=== PATIENT | female | born 1990 | race African-American/Black ===

== ENCOUNTER 2021-06-26 19:40 | Observation (INO) | payer SELFPAY ==
[~2021-06-26] VITALS: Ht 167.6 cm; Wt 84.0 kg
[2021-06-26] MEDS ORDERED: ONDANSETRON 4MG ODT PO ONE (21:45)
[2021-06-26 22:11] LABS: HEMATOCRIT. 30.6 % (36.0-48.0); HEMOGLOBIN. 10.3 g/dL (12.0-16.0); MEAN CORPUSCULAR HEMOGLOBIN 29.3 pg (28.0-32.0); MEAN CORPUSCULAR VOLUME 87.1 fL (81.0-99.0); MEAN PLATELET VOLUME 8.1 fl (7.4-10.4); PLATELET 261 x1000/uL (130-400); RED BLOOD CELL COUNT 3.51 mill/uL (4.2-5.4); RED CELL DISTRIBUTION WIDTH 13.6 % (11.6-14.6)
[2021-06-26 22:14] LABS: CHLORIDE 104 mEq/L (98-107)
[2021-06-26 22:36] LABS: PLATELET ESTIMATE NORMAL
[2021-06-26] MEDS ORDERED: ASPIRIN 325MG EC TABLET PO ONE (23:45)
[2021-06-26 23:58] VITALS: BP 137/74
[2021-06-27] MEDS ORDERED: PREN-176 MT (00:32)
[2021-06-27 01:46] LABS: CLARITY URINE CLEAR (CLEAR); COLOR URINE YELLOW (YELLOW); KETONES URINE 1+ (NEGATIVE); LEUKOCYTE ESTERASE URINE NEGATIVE (NEGATIVE); NITRITE URINE NEGATIVE (NEGATIVE); OCCULT BLOOD URINE NEGATIVE (NEGATIVE); PH URINE 5.5 (4.5-8.0); PROTEIN URINE NEGATIVE (NEGATIVE); SPECIFIC GRAVITY URINE 1.012 (1.005-1.030); UROBILINOGEN URINE 0.2 E.U./dL (0.2-1.0)
== END 2021-06-27 02:45 | disposition home or self-care (01) ==
LOC: ER 19:40 → 8 EST LDRP 06-27 00:22
PROVIDERS: ADMIT Obstetrics & Gynecology; ATTEND Obstetrics & Gynecology
DX: O26.892 Other specified pregnancy related conditions, second trimester (principal); K21.9 Gastro-esophageal reflux disease without esophagitis; R10.10 Upper abdominal pain, unspecified; R10.30 Lower abdominal pain, unspecified; O99.512 Diseases of the respiratory system complicating pregnancy, second trimester; R07.2 Precordial pain; Z3A.22 22 weeks gestation of pregnancy
CPT/HCPCS: 36415; 59025; 76805; 80053; 81003; 83690; 84484; 85025; 93005; G0378; 99281; 99284; G0379

== ENCOUNTER 2021-10-25 03:35 | Observation (INO) | payer SELFPAY ==
[~2021-10-25] VITALS: Ht 167.6 cm; Wt 93.4 kg
[~2021-10-25 03:35] MED LIST: PREN-176 MT
[2021-10-25] MEDS: LACTATED RINGERS 1,000 ML IV SCH ×2 (06:52→09:48)
[2021-10-25 09:09] LABS: BASOPHILS % 0.2 % (0.0-2.0); EOSINOPHILS % 1.3 % (0.0-5.0); HEMATOCRIT. 34.3 % (36.0-48.0); HEMOGLOBIN. 11.6 g/dL (12.0-16.0); MEAN CORPUSCULAR HEMOGLOBIN 29.4 pg (28.0-32.0); MEAN CORPUSCULAR VOLUME 87.1 fL (81.0-99.0); MEAN PLATELET VOLUME 9.5 fl (7.4-10.4); MONOCYTES % 12.6 % (2.0-8.0); NEUTROPHILS % 56.9 % (40.0-76.0); PLATELET 233 x1000/uL (130-400); RED BLOOD CELL COUNT 3.94 mill/uL (4.2-5.4); RED CELL DISTRIBUTION WIDTH 15.7 % (11.6-14.6)
[2021-10-25 09:14] LABS: CLARITY URINE CLEAR (CLEAR); COLOR URINE YELLOW (YELLOW); KETONES URINE NEGATIVE (NEGATIVE); LEUKOCYTE ESTERASE URINE TRACE (NEGATIVE); NITRITE URINE NEGATIVE (NEGATIVE); OCCULT BLOOD URINE 2+ (NEGATIVE); PROTEIN URINE NEGATIVE (NEGATIVE); SPECIFIC GRAVITY URINE 1.006 (1.005-1.030); UROBILINOGEN URINE 0.2 E.U./dL (0.2-1.0)
[2021-10-25 09:29] LABS: PARTIAL THROMBOPLASTIN TIME 29.3 sec (23.4-31.0); PROTHROMBIN TIME 10.5 sec (9.6-11.0)
[2021-10-25 09:29] LABS: *AMPHETAMINES SCREEN URINE NEGATIVE (NEGATIVE); *BARBITURATES SCREEN URINE NEGATIVE (NEGATIVE); *BENZODIAZEPINES SCREEN URINE NEGATIVE (NEGATIVE); *COCAINE SCREEN URINE NEGATIVE (NEGATIVE); CANNABINOID URINE SCREEN NEGATIVE (NEGATIVE); METHADONE URINE SCREEN NEGATIVE (NEGATIVE); OPIATES URINE SCREEN NEGATIVE (NEGATIVE); PHENCYCLIDINE URINE SCREEN NEGATIVE (NEGATIVE)
[2021-10-25 12:24] LABS: HEPATITIS B SURFACE ANTIGEN NEGATIVE
== END 2021-10-25 12:06 | disposition home or self-care (01) ==
LOC: OBSVTOIN 03:35 → 8 EST LDRP 03:35 → INTOOBSV 03:35
PROVIDERS: ADMIT Obstetrics & Gynecology; ATTEND Obstetrics & Gynecology
DX: O62.9 Abnormality of forces of labor, unspecified (principal); O26.893 Other specified pregnancy related conditions, third trimester; R10.9 Unspecified abdominal pain; O48.0 Post-term pregnancy; Z20.822 Contact with and (suspected) exposure to COVID-19; Z79.899 Other long term (current) drug therapy; Z3A.40 40 weeks gestation of pregnancy
CPT/HCPCS: 36415; 76805; 76818; 80305; 81003; 85025; 85610; 85730; 86592; 86703; 86762; 86850; 86900; 86901; 87340; 87426; 96360; 96361; 99281; G0378; 59025; J7120

== ENCOUNTER 2021-10-25 19:53 | Inpatient (IN) | payer SELFPAY ==
[~2021-10-25] VITALS: Ht 167.6 cm; Wt 93.4 kg
[~2021-10-25 19:53] MED LIST changes: +LIDOCAINE HCL 2%/EPINEPHRINE 1:100,000 20 ML VIAL INFIL ONE
[2021-10-25] MEDS: LACTATED RINGERS 1,000 ML IV SCH ×2 (21:05→21:58)
[2021-10-25] MEDS ORDERED: PENICILLIN G POTASSIUM 5 MMU in DEXT 5% WATER 100 ML IV NR (22:00)
[2021-10-25] MEDS ORDERED: METHYLERGONOVINE MALEATE 0.2 MG/ML IM PRN (22:15)
[2021-10-25] MEDS ORDERED: NALOXONE HCL 0.4 MG/ML 1ML VIAL IM PRN (22:15)
[2021-10-25] MEDS ORDERED: LIDOCAINE HCL 1% 20ML VIAL (Pyxis) INJ INFIL SCH (22:15)
[2021-10-25] MEDS ORDERED: CARBOPROST TROMETHAMINE 250 MCG/ML AMPUL IM PRN (22:15)
[2021-10-25] MEDS ORDERED: DEXT 5%/LR + PITOCIN 20UNITS/L 1,000 ML IV SCH (22:30)
[2021-10-25] MEDS ORDERED: ROPIVACAINE HCL/PF EPIDURAL 200 ML EPI SCH (23:30)
[2021-10-25] MEDS ORDERED: ROPIVACAINE HCL/PF EPIDURAL 200 ML EPI ONE (23:33)
[2021-10-26] MEDS: LACTATED RINGERS 1,000 ML IV SCH ×2 (00:54→06:45)
[2021-10-26] MEDS: PENICILLIN G POTASSIUM 2.5 MMU in DEXTROSE 5% WATER 50 ML IV SCH ×2 (03:39→07:20)
[2021-10-26] MEDS ORDERED: FENTANYL CITRATE/PF 50MCG/ML 2ML VIAL ONE (06:18)
[2021-10-26] MEDS ORDERED: CEFAZOLIN SODIUM 1000MG/VIAL ONE (06:19)
[2021-10-26] MEDS ORDERED: MORPHINE SULFATE/PF 1MG/ML 10ML AMP ONE (06:19)
[2021-10-26] MEDS ORDERED: ONDANSETRON HCL 4MG/2ML INJ ONE ×2 (06:20→09:14)
[2021-10-26] MEDS ORDERED: OXYTOCIN 10 UNITS/ML 1ML ONE (06:20)
[2021-10-26] MEDS ORDERED: METHYLERGONOVINE MALEATE 0.2 MG/ML ONE (06:29)
[2021-10-26] MEDS ORDERED: CITRIC ACID/SODIUM CITRATE SOLN 30ML UDC PO NR (08:15)
[2021-10-26] MEDS ORDERED: DIPHENHYDRAMINE 50MG/ML VIAL ONE (09:14)
[2021-10-26] MEDS ORDERED: KETOROLAC 60MG/2ML VIAL IM ONE (09:22)
[2021-10-26] MEDS ORDERED: BUTORPHANOL TARTRATE 2 MG/ML VIAL IV PRN (09:30)
[2021-10-26] MEDS ORDERED: DIPHENHYDRAMINE 50MG/ML VIAL IV PRN (09:30)
[2021-10-26] MEDS ORDERED: NALOXONE HCL 0.4 MG/ML 1ML VIAL IV PRN (09:30)
[2021-10-26] MEDS ORDERED: DEXT 5%/LACTATED RINGERS 1,000 ML IV SCH (09:45)
[2021-10-26] MEDS ORDERED: LANOLIN OINT 7GM TUBE TOP PRN (09:45)
[2021-10-26] MEDS ORDERED: HYDROMORPHONE HCL/PF 2MG/ML CPJ IM PRN (09:45)
[2021-10-26] MEDS ORDERED: HYDROCODONE/ACETAMINOPHEN 5/325MG TABLET PO PRN (09:45)
[2021-10-26] MEDS ORDERED: DIPHENHYDRAMINE 25MG CAPSULE PO PRN (09:45)
[2021-10-26] MEDS ORDERED: ONDANSETRON HCL 4MG/2ML INJ IV PRN (09:45)
[2021-10-26] MEDS ORDERED: BISACODYL 10MG SUPP PR PRN (09:45)
[2021-10-26] MEDS ORDERED: IBUPROFEN 400MG TABLET PO PRN (09:45)
[2021-10-26] MEDS ORDERED: MAGNESIUM 4 G PREMIX 100 ML IV ONE (09:45)
[2021-10-26] MEDS: DEXT 5%/LR + PITOCIN 20UNITS/L 1,000 ML IV SCH (10:00)
[2021-10-26 12:00] VITALS: BP 126/74
[2021-10-26 16:00] VITALS: BP 117/73
[2021-10-26] MEDS: KETOROLAC 30MG/ML VIAL IV SCH ×2 (16:11→23:32)
[2021-10-26 20:00] VITALS: BP 109/71
[2021-10-27] MEDS ORDERED: KETOROLAC 30MG/ML VIAL IV SCH
[2021-10-27 00:01] VITALS: BP 123/74
[2021-10-27 03:30] VITALS: BP 117/68
[2021-10-27] MEDS: DEXT 5%/LR + PITOCIN 20UNITS/L 1,000 ML IV SCH (03:30)
[2021-10-27] MEDS: KETOROLAC 30MG/ML VIAL IV SCH (05:16)
[2021-10-27 07:41] VITALS: BP 118/72
[2021-10-27 07:53] LABS: BASOPHILS % 0.1 % (0.0-2.0); EOSINOPHILS % 1.1 % (0.0-5.0); HEMOGLOBIN. 9.5 g/dL (12.0-16.0); LYMPHOCYTES % 13.9 % (20.0-50.0); MEAN CORPUSCULAR HEMOGLOBIN 30.2 pg (28.0-32.0); MEAN CORPUSCULAR VOLUME 88.6 fL (81.0-99.0); MEAN PLATELET VOLUME 8.7 fl (7.4-10.4); MONOCYTES % 13.1 % (2.0-8.0); NEUTROPHILS % 71.8 % (40.0-76.0); PLATELET 187 x1000/uL (130-400); RED BLOOD CELL COUNT 3.16 mill/uL (4.2-5.4); RED CELL DISTRIBUTION WIDTH 15.7 % (11.6-14.6)
[2021-10-27] MEDS: SIMETHICONE 80MG TABLET CHEW PO SCH ×3 (09:10→18:18)
[2021-10-27] MEDS: FERROUS SULFATE 325MG TABLET PO SCH ×3 (09:10→18:18)
[2021-10-27] MEDS ORDERED: BUTORPHANOL TARTRATE 2 MG/ML VIAL IV PRN (10:45)
[2021-10-27] MEDS: IBUPROFEN 800MG TABLET PO PRN ×2 (13:10→20:52)
[2021-10-27 16:09] VITALS: BP 107/57
[2021-10-27 20:00] VITALS: BP 122/73
[2021-10-27] MEDS: DOCUSATE SODIUM 100MG CAPSULE PO SCH (20:52)
[2021-10-28 05:30] VITALS: BP 116/72
[2021-10-28] MEDS: IBUPROFEN 800MG TABLET PO PRN ×3 (05:38→19:53)
[2021-10-28 07:30] VITALS: BP 122/62
[2021-10-28] MEDS: SIMETHICONE 80MG TABLET CHEW PO SCH ×4 (08:32→19:54)
[2021-10-28] MEDS: PRENATAL VIT/FE FUMARATE/FA TABLET PO SCH ×2 (08:33→09:00)
[2021-10-28] MEDS: FERROUS SULFATE 325MG TABLET PO SCH ×3 (08:33→18:14)
[2021-10-28 16:05] VITALS: BP 114/63
[2021-10-28] MEDS: DOCUSATE SODIUM 100MG CAPSULE PO SCH (19:53)
[2021-10-28 20:00] VITALS: BP 110/83
[2021-10-29] MEDS: IBUPROFEN 800MG TABLET PO PRN (02:07)
[2021-10-29 04:00] VITALS: BP 126/83
[2021-10-29] MEDS ORDERED: FERR-63 PO (07:10)
[2021-10-29] MEDS ORDERED: IBUP-2030 PO (07:10)
[2021-10-29 07:30] VITALS: BP 131/77
[2021-10-29] MEDS: FERROUS SULFATE 325MG TABLET PO SCH (07:30)
[2021-10-29] MEDS: SIMETHICONE 80MG TABLET CHEW PO SCH (08:00)
[2021-10-29] MEDS ORDERED: MEDROXYPROGESTERONE ACETATE 150MG/ML VIAL IM SCH (08:30)
== END 2021-10-29 12:15 | disposition home or self-care (01) | DRG 540 ==
LOC: 8 EST LDRP 19:53 → OBSVTOIN 19:53 → 8EST 10-26 12:03
PROVIDERS: ADMIT Obstetrics & Gynecology; ATTEND Obstetrics & Gynecology
PROC: 10D00Z1 Extraction of Products of Conception, Low, Open Approach (ICD-10-PCS; principal; 2021-10-26)
DX: O48.0 Post-term pregnancy (principal); O76 Abnormality in fetal heart rate and rhythm complicating labor and delivery; O77.0 Labor and delivery complicated by meconium in amniotic fluid; O99.02 Anemia complicating childbirth; Z37.0 Single live birth; Z3A.40 40 weeks gestation of pregnancy; Z83.3 Family history of diabetes mellitus
CPT/HCPCS: 36415; 85025; 86850; 86900; 86920; 88307; 99281; J0690; J1050; J1200; J1885; J2210; J2274; J2405; J2540; J2590; J2795; J3010; J3490; J7060; J7121